=== PATIENT | female | born 1990 | race Caucasian/White ===

== ENCOUNTER 2017-11-28 11:19 | Emergency (ER) | payer SELFPAY ==
[2017-11-28 11:51] VITALS: BP 108/69; PULSE 89; RESP 16; TEMP 36.7; O2SAT 96
[2017-11-28] MEDS: Albuterol HFA 8 GM 60 PUFF INH IH (12:46)
--- NOTE | 2017-11-28 13:21 | W.ED.GENAD ---
Discharge Plan Disposition Patient Disposition: HOME Condition: Fair Discharge Details Chief Complaint: RespSymp Clinical Impression: Cough, Allergic cough Primary Care Provider: [facility] ED Provider: Lyla Auguste Home Meds and New Rx's Prescriptions: No Action No Known Home Meds RF: 0 Discharge Instructions Instructions: Acute Cough (ED) Additional Instructions: Encourage hydration. Tylenol and/or ibuprofen as needed for discomfort. Use albuterol inhaler as advised by respiratory therapy. Please use 2 puffs every 4-6 hours as needed to help with your sensation of shortness of breath. Please follow-up with primary care within the next week for reevaluation. If you develop fever/chills, increased cough, difficulty breathing, chest pain or other new/worsening symptoms please seek care urgently once again. Stand Alone Forms: Work Release Discharge Data Discharge Date/Time-TO BE ENTERED AT DEPARTURE: 11/28/17 14:22 Medical Decision Making MDM Narrative Medical decision making narrative: Patient is not tachypneic or tachycardic. She is not hypoxic, oxygen is currently 96% on room air. Breathing comfortably on exam. Lungs are clear. No wheezing, rales or rhonchi. Given her symptoms and how they began, improving with concern for possible reactive component. Will give albuterol inhaler and reevaluate. Her hisotry and symptoms are most likely associated with exposure. Respiratory therapy worked with patient and instructed on use of inhaler, she reports feeling much improved. Encourage dhydration. Advised f/u with PCP in one week if sympeoms are not improving, she reports she has a PCP in [place]. Advsed on home and OTC remedies that may help with symptomatic management. Discussed new/worsening symptoms and when to seek care urgently once again. All of her qeustions and concerns were addressed, she is in agrement with this plan. HPI - General Adult General Mode of arrival: ambulatory. Date/Time Provider Initiated Documentation: 11/28/17 12:29. Limitations to Documentation: no limitations. Information obtained by: patient. HPI Narrative: Patient presents today with chief complaint of cough ?1 week. She reports that symptoms began after being exposed to mildew while moving all the boxes it. States that initially she was endorsing a scratchy throat. States that while this has largely subsided she is subsequently developed a cough. He is endorsing shortness of breath associated with the cough. She is currently resting and speaking in full sentences. No history of asthma or other respiratory illnesses. She denies any fevers or chills. Reports that her cough is dry, nonproductive. States that she is having some discomfort with her cough. Related Data Home Medications Medication Instructions Recorded Confirmed Unknown [No Known Home Meds] 11/28/17 11/28/17 Allergies Allergy/AdvReac Type Severity Reaction Status Date / Time No Known Allergies Allergy Unverified 11/28/17 11:54 General Stated Complaint: RespSymp PATTI: 4 Review of Systems Constitutional Reports as per HPI, Denies chills, Denies fever(s), Denies headache(s) and Denies malaise ENT Denies dental pain, Denies otalgia, Denies headache(s), Denies nasal obstruction, Denies sinus pain, Denies sinus pressure and Denies sore throat Cardiovascular Denies chest pain and Denies lightheadedness Respiratory Reports as per HPI Gastrointestinal Denies change in stool character, Denies nausea and Denies vomiting Integumentary/Breasts Denies rash Neurologic Denies headache(s) PFS Social History Smoking/Tobacco Use Status: Never Exam Const General: cooperative, healthy appearing, comfortable, no acute distress, well developed and well groomed Nutritional Appearance: average body habitus and well nourished Orientation: alert and awake [facility] Head: normal to inspection, normocephalic and atraumatic Ears: hearing grossly normal bilaterally, external ears normal and TM's normal bilaterally General nose exam: external nose normal and nares normal Mouth: oral mucosae normal, lip normal, tongue normal, oropharynx normal and moist mucous membranes Teeth and gingiva: dentition normal Throat: posterior oropharynx normal, tonsils normal and uvula midline Eyes General: appearance normal, both eyes and all related structures Neck Neck: normal visual inspection and no lymphadenopathy Resp Effort & Inspection: normal respiratory effort, able to speak in complete sentences and no respiratory distress Auscultation: clear to auscultation bilaterally, no rales, no rhonchi and no wheezes Cardio Rate: regular rate Rhythm: regular rhythm Heart Sounds: S1 normal and S2 normal Skin General skin exam: no rashes or lesions noted Lesions: no lesions Rashes: no rashes Neuro General: alert, awake and oriented x3 Cognition: normal cognition Speech: speech normal Gait: normal gait Psych Appearance: grossly normal and well kempt Mental Status: mental status grossly normal Speech and Movement: speech and movement normal Course Vital Signs Temperature 36.7 C 11/28/17 11:51 Pulse 89 11/28/17 11:51 Respiratory Rate 16 11/28/17 11:51 Blood Pressure 108/69 11/28/17 11:51 Pulse Oximetry 96 11/28/17 11:51 Temperature 36.7 C 11/28/17 11:51 Pulse 89 11/28/17 11:51 Respiratory Rate 11/28/17 11:51 Blood Pressure 108/69 11/28/17 11:51 Pulse Oximetry 96 11/28/17 11:51
--- NOTE | 2017-11-28 13:26 | ED.GENADUL_ITS ---
Discharge Plan Disposition Patient Disposition: HOME Condition: Fair Discharge Details Chief Complaint: RespSymp Clinical Impression: Cough, Allergic cough Primary Care Provider: [facility] ED Provider: Lyla Auguste Home Meds and New Rx's Prescriptions: No Action No Known Home Meds RF: 0 Discharge Instructions Instructions: Acute Cough (ED) Additional Instructions: Encourage hydration. Tylenol and/or ibuprofen as needed for discomfort. Use albuterol inhaler as advised by respiratory therapy. Please use 2 puffs every 4 -6 hours as needed to help with your sensation of shortness of breath. Please follow-up with primary care within the next week for reevaluation. If you develop fever/chills, increased cough, difficulty breathing, chest pain or other new/worsening symptoms please seek care urgently once again. Stand Alone Forms: Work Release Discharge Data Discharge Date/Time-TO BE ENTERED AT DEPARTURE: 11/28/17 14:22 Medical Decision Making MDM Narrative Medical decision making narrative: Patient is not tachypneic or tachycardic. She is not hypoxic, oxygen is currently 96% on room air. Breathing comfortably on exam. Lungs are clear. No wheezing, rales or rhonchi. Given her symptoms and how they began, improving with concern for possible reactive component. Will give albuterol inhaler and reevaluate. Her hisotry and symptoms are most likely associated with exposure. Respiratory therapy worked with patient and instructed on use of inhaler, she reports feeling much improved. Encourage dhydration. Advised f/u with PCP in one week if sympeoms are not improving, she reports she has a PCP in [place]. Advsed on home and OTC remedies that may help with symptomatic management. Discussed new/worsening symptoms and when to seek care urgently once again. All of her qeustions and concerns were addressed, she is in agrement with this plan. HPI - General Adult General Mode of arrival: ambulatory . Date/Time Provider Initiated Documentation: 11/28/17 12:29 . Limitations to Documentation: no limitations . Information obtained by: patient . HPI Narrative: Patient presents today with chief complaint of cough ?1 week. She reports that symptoms began after being exposed to mildew while moving all the boxes it. States that initially she was endorsing a scratchy throat. States that while this has largely subsided she is subsequently developed a cough. He is endorsing shortness of breath associated with the cough. She is currently resting and speaking in full sentences. No history of asthma or other respiratory illnesses. She denies any fevers or chills. Reports that her cough is dry, nonproductive. States that she is having some discomfort with her cough. Related Data Home Medications Medication Instructions Recorded Confirmed Unknown [No Known Home Meds] 11/28/17 11/28/17 Allergies Allergy/AdvReac Type Severity Reaction Status Date / Time No Known Allergies Allergy Unverified 11/28/17 11:54 General Stated Complaint: RespSymp PATTI: 4 Review of Systems Constitutional Reports as per HPI, Denies chills, Denies fever(s), Denies headache(s) and Denies malaise ENT Denies dental pain, Denies otalgia, Denies headache(s), Denies nasal obstruction , Denies sinus pain, Denies sinus pressure and Denies sore throat Cardiovascular Denies chest pain and Denies lightheadedness Respiratory Reports as per HPI Gastrointestinal Denies change in stool character, Denies nausea and Denies vomiting Integumentary/Breasts Denies rash Neurologic Denies headache(s) PFS Social History Smoking/Tobacco Use Status: Never Exam Const General: cooperative, healthy appearing, comfortable, no acute distress, well developed and well groomed Nutritional Appearance: average body habitus and well nourished Orientation: alert and awake [facility] Head: normal to inspection, normocephalic and atraumatic Ears: hearing grossly normal bilaterally, external ears normal and TM's normal bilaterally General nose exam: external nose normal and nares normal Mouth: oral mucosae normal, lip normal, tongue normal, oropharynx normal and moist mucous membranes Teeth and gingiva: dentition normal Throat: posterior oropharynx normal, tonsils normal and uvula midline Eyes General: appearance normal, both eyes and all related structures Neck Neck: normal visual inspection and no lymphadenopathy Resp Effort & Inspection: normal respiratory effort, able to speak in complete sentences and no respiratory distress Auscultation: clear to auscultation bilaterally, no rales, no rhonchi and no wheezes Cardio Rate: regular rate Rhythm: regular rhythm Heart Sounds: S1 normal and S2 normal Skin General skin exam: no rashes or lesions noted Lesions: no lesions Rashes: no rashes Neuro General: alert, awake and oriented x3 Cognition: normal cognition Speech: speech normal Gait: normal gait Psych Appearance: grossly normal and well kempt Mental Status: mental status grossly normal Speech and Movement: speech and movement normal Course Vital Signs Temperature 36.7 C 11/28/17 11:51 Pulse 89 11/28/17 11:51 Respiratory Rate 16 11/28/17 11:51 Blood Pressure 108/69 11/28/17 11:51 Pulse Oximetry 96 11/28/17 11:51 Temperature 36.7 C 11/28/17 11:51 Pulse 89 11/28/17 11:51 Respiratory Rate 11/28/17 11:51 Blood Pressure 108/69 11/28/17 11:51 Pulse Oximetry 96 11/28/17 11:51
--- NOTE | 2017-11-28 14:43 | PDOC.ERCMPRO ---
Care Management Progress Note 11/28/17-Pt seen today for Resp. Symptoms by AMINAH Wood . This CM instructed Pt on MDI and spacer use with Félix. Pt has great technique and breath hold.
== END 2017-11-28 14:22 | disposition home or self-care (01) ==
PROVIDERS: Emergency Provider Physician Assistant
DX: R05 Cough (principal)
CPT/HCPCS: 99283